=== PATIENT | male | born 1960 | race Caucasian/White ===

== ENCOUNTER 2018-12-29 18:04 | Observation (INO) ==
[2018-12-29] MEDS ORDERED: GLUCAGON IV ONE ×2 (18:14→19:39)
[2018-12-29] MEDS ORDERED: NS 1,000 ML IV ONE (18:14)
[2018-12-29] MEDS ORDERED: BENADRYL IV ONE (18:15)
[2018-12-29] MEDS ORDERED: NITROGLYCERIN TOP ONE (18:15)
[2018-12-29] MEDS ORDERED: REGLAN IV ONE (18:15)
[2018-12-29] MEDS ORDERED: STERILE WATER INJ. ONE (18:29)
[2018-12-29] MEDS ORDERED: SODIUM CHLORIDE 0.9% INJ ONE (18:30)
[2018-12-29] MEDS ORDERED: PROTONIX IV ONE (18:30)
--- NOTE | 2018-12-29 18:33 | PROVIDER DOCUMENTATION ---
This chart was entered by Polly Jones Scribe, acting as scribe for Jay Walden MD. HPI-General Adult - General Chief Complaint: Foreign Body Stated Complaint: FOREIGN OBJECT IN ESOPHAGUS Time Seen by Provider: 12/29/18 18:10 Source: patient Allergies/Adverse Reactions: Patient Allergies Allergy/AdvReac Type Severity Reaction Status Date / Time No Known Allergies Allergy Verified 09/08/17 12:32 Home Medications: Home Medication List Medication Instructions Recorded Confirmed Last Taken Type Ezetimibe 10 mg PO DAILY 04/01/16 09/12/17 09/11/17 07:00 History Levothyroxine [Synthroid] 75 microgm PO DAILY 04/01/16 09/12/17 09/11/17 07:00 History Losartan Potassium 50 mg PO DAILY 04/01/16 09/12/17 09/03/17 07:00 History Meloxicam 15 mg PO DAILY 04/01/16 09/12/17 09/03/17 07:00 History Metoprolol Tartrate 50 mg PO BID 04/01/16 09/12/17 09/12/17 07:00 History Azelastine HCl 2 spr INH BID 09/08/17 09/12/17 09/11/17 07:00 History Montelukast Sodium [Singulair] 10 mg PO DAILY 09/12/17 09/12/17 09/11/17 07:00 History Acetaminophen [Tylenol] 1,000 mg PO Q6H tablet 09/13/17 Unknown Rx Aspirin 325 mg PO DAILY tablet 09/13/17 Unknown Rx Docusate Sodium [Colace] 100 mg PO BID capsule 09/13/17 Unknown Rx Famotidine [Pepcid] 20 mg PO DAILY tablet 09/13/17 Unknown Rx Oxycodone I.r. [Oxy Ir] 5 - 10 mg PO Q3H PRN PRN #60 tab 09/13/17 Unknown Rx Pregabalin [Lyrica] 75 mg PO BID #60 cap 09/13/17 Unknown Rx Tramadol [Ultram] 100 mg PO Q6H #120 tab 09/13/17 Unknown Rx - History of Present Illness -Gen Adult Nature of Presenting Problems: Pt is a 58 yom who presents to the ED with a CC of swallowing a foreign body. Pt states that he swallowed a chicken bone last night. Pt reports vomiting. Pt states that he cannot eat or drink anything. Pt is unable to swallow his sputum since this morning. Pt has frequent hiccups. Pt reports visiting urgent care earlier today. Pt denies trouble breathing and SOB. Pt denies any other complaints. Location of Pain/Injury: reports: chest (subxiphoid area, mainly when he hiccups) Pain Radiation: reports: no radiation Quality of Pain: reports: sharp Severity: reports: mild Onset/Duration: reports: last night Timing: reports: still present Context/Activities at Onset: reports: eating (foreign body(chicken bone)) Modifying Factors: improves with: nothing Associated Symptoms: reports: vomiting Similar Symptoms Previously?: No Recently seen or treated by another doctor?: Yes Review of Systems - Adult - REVIEW OF SYSTEMS - ADULT Constitutional: reports: see HPI Eyes: reports: no symptoms reported Ears, Nose, Mouth & Throat: reports: see HPI, other (trouble swallowing due to foreign body) Cardiovascular: reports: no symptoms reported Respiratory: reports: no symptoms reported Gastrointestinal: reports: see HPI, difficulty swallowing, vomiting Genitourinary: reports: no symptoms reported Musculoskeletal: reports: no symptoms reported Integumentary: reports: no symptoms reported Neurological: reports: no symptoms reported Psychiatric: reports: no symptoms reported Endocrine: reports: no symptoms reported Hematologic/Lymphatic: reports: no symptoms reported Allergic/Immunologic: reports: no symptoms reported All Other Systems: Reviewed and Negative Past History - Adult - PAST MEDICAL HISTORY-ADULT Review of Records: reports: Old Records Reviewed, Nursing Assessment Review, Medications Reviewed, Social history reviewed & non-contributory. Major Childhood Illnesses: reports: denies history Cardiovascular: reports: HTN Respiratory: reports: denies history Gastrointestinal: reports: denies history Obstetrical/Gynecological: reports: denies history Genitourinary: reports: denies history Musculoskeletal: reports: denies history Neurological: reports: denies history Endocrine/Immune: reports: thyroid disorder (hypothyroid/MED) Other Conditions: reports: denies history - IMMUNIZATION STATUS Childhood Immunizations: See Nurse Assessment Flu Vaccine: See Nurse Assessment - FAMILY HISTORY Family History: reviewed, not pertinent - SOCIAL HISTORY Smoking: quit greater than 1 year, less than 1 pack/day Substance Use: denies Alcohol Use Frequency: rarely Living Situation: family Physical Exam-General - PHYSICAL EXAM-ADULT Initial Vital Signs Reviewed: Yes (VSSAF) - CONSTITUTIONAL General Appearance: alert (frequent hiccups) - EYES Eyes: PERRL/EOMI, pink conjunctivae - HEAD, EARS, NOSE, MOUTH & THROAT HENMT: normocephalic/atraumatic. negative: moist mucous membranes - NECK Neck: normal inspection - RESPIRATORY Respiratory: lungs clear, normal breath sounds, no pleuratic chest pain, no respiratory distress, no accessory muscle use. negative: crackles, wheezing - CARDIOVASCULAR Cardiovascular: normal peripheral pulses, regular rate, rhythm. negative: bradycardia, tachycardia - GASTROINTESTINAL (ABDOMEN) Abdominal Exam: non tender, soft, other (frequent hiccups) - MUSCULOSKELETAL Back Exam: normal inspection Extremity: normal inspection - SKIN Integumentary: normal color, normal turgor, warm/dry. negative: ecchymosis, erythema - NEUROLOGIC Neurologic: grossly normal - PSYCHIATRIC Psych/Mental Status: normal mood/affect, normal thought content, normal thought process, oriented x 3 Progress - PLAN OF CARE/RESULTS Progress/Plan/Lab Results: Vital Signs - 8 hr 12/29/18 18:06 Temperature 98.2 F Pulse Rate 97 H Respiratory Rate 19 Blood Pressure 150/92 O2 Sat by Pulse Oximetry 95 - XRAY 1 XRAY Study: Chest Impression: Normal, See EMR Report ( EXAM: CHEST-PORTABLE HISTORY: esophageal foreign body TECHNIQUE: Single view COMPARISON: 10/09/2014 FINDINGS: The lungs are well expanded. The heart is not enlarged. The vessels are not distended. There are no infiltrates. No effusion identified. No foreign body identified. IMPRESSION: Negative exam. Electronically signed by Enrique Cochran 12/29/2018 6:30 PM 12/29/18 1830 Interpreting Physician: Enrique Cochran MD Dictated Date/Time: 12/29/18 1829 cc: Jay Walden MD; Soy Olivo) - CONSULTS/PCP/HOSPITALIST Notification #1 *Consult/PCP/Hospitalist*: [facility] Time Discussed: 18:32 Reason/Comments: CAll back to see if any luck with meds - CHANGE OF SHIFT REPORT (ED Provider) 1 Report Given and Care Transferred to:: [facility] Time of Transfer: 19:00 Items Pending: Other (re-evaluation after meds, then either call [facility] back or d/c home) Departure - Departure DIAGNOSIS: Impacted esophageal foreign body Qualifiers: Encounter type: initial encounter Qualified Code(s): T18.108A - Unspecified foreign body in esophagus causing other injury, initial encounter Certified Medical Emergency: Emergent Condition: Stable Referrals and Follow-Ups: Soy Schuster [Primary Care Provider] - - Critical Care Note This patient required my direct & personal management of CC.: No Attestation - Physician/ ANG Attestation Patient care was provided by Advanced Practice Provider:: No The physician spent face to face time with patient:: Yes Advanced Practice Provider documentation review:: Supervising physician onsite and consulted in the evaluation and care of this patient. The physician did have a face to face encounter with the patient. This chart was documented by the indicated scribe, (Polly Jones Scribe) and accurately reflects the services I performed and decisions made by me, Jay Walden MD, as attested by the provider's signature.
[2018-12-29] MEDS ORDERED: STERILE WATER INJ. INJ ONE (18:36)
[2018-12-29 19:43] LABS: BASO# 0.05 X1000 (0.0-0.2); BASO% 0.5 % (0.0-0.8); EOS# 0.16 X1000 (0.0-0.7); EOS% 1.6 % (0.0-10.0); HEMATOCRIT 45.2 % (42.0-52.0); HEMOGLOBIN 15.3 g/dL (14.0-18.0); LYMPH# 1.52 X1000 (1.2-3.4); LYMPH% 15.1 % (20.5-51.1); MCH 30.1 PG (27-31); MCHC 33.8 g/dL (33-37); MCV 88.8 FL (81-99); MONO# 0.69 X1000 (0.11-0.59); MONO% 6.9 % (1.7-9.3); MPV 10.3 FL (7.4-10.4); NEUT# 7.63 X1000 (1.4-6.5); NEUT% 75.9 % (42.2-75.2); PLT 291 X1000 (130-400); RBC 5.09 XMIL (4.7-6.1); RDW 14.8 % (11.5-14.5); WBC 10.05 X1000 (4.8-10.8)
[2018-12-29 20:03] LABS: AGAP 14; ALB/GLOB RATIO 1.8; ALBUMIN 4.8 g/dL (3.5-5.0); ALKALINE PHOSPHATASE 57 U/L (32-122); BUN 20 mg/dL (8-22); CALCIUM 9.3 mg/dL (8.8-10.2); CHLORIDE 107 mmol/L (98-107); COSMO 289; CREATININE 0.9 mg/dL (0.7-1.2); ESTIMATED GFR > 60; GLUCOSE 99 mg/dL (70-104); GOT 28 U/L (10-34); GPT 25 U/L (10-44); POTASSIUM 3.4 mmol/L (3.5-5.1); SODIUM 144 mmol/L (136-145); TCO2 23 mmol/L (25-35); TOTAL BILIRUBIN 0.74 mg/dL (0.20-1.00); TOTAL PROTEIN 7.5 g/dL (6.3-8.3)
[2018-12-29] MEDS ORDERED: XYLOCAINE-MPF 2% ONE (20:17)
[2018-12-29] MEDS ORDERED: DIPRIVAN 1% ONE (20:18)
[2018-12-29] MEDS ORDERED: QUELICIN (DOSE) ONE (20:31)
--- NOTE | 2018-12-29 21:04 | ENDOSCOPY OPERATIVE NOTE ---
[facility] ENDOSCOPY OPERATIVE NOTE , PATIENT: Marko Silverman ADMISSION DATE: MR#: [id number] : 1960 EGD PROCEDURE REPORT PROCEDURE DATE: 12/29/2018 SURGEON: Nino Horton MD STATUS: inpatient COST ANALYST: Bing Ray and James Pimentel PREOPERATIVE DIAGNOSIS: The patient is a 58 yr old male here for an EGD due to Food impaction after eating chicken last night, GERD, Arthritis takes Mobic. PROCEDURE PERFORMED: EGD w/ fb removal MEDICATIONS: Per Anesthesia TOPICAL ANESTHETIC: CONSENT: The patient understands the risks and benefits of the procedure and understands that these r isks include, but are not limited to: sedation, allergic reaction, infection, perforation and/or bleeding. Alternative means of evaluation and treatment include, among others: physical exam, x-rays, and/or surgical intervention. The patient elects to proceed with this endoscopic procedure. HISORY AND PHYSICAL: 12/29/2018 DESCRIPTION OF PROCEDURE: During intra-op preparation period all mechanical and medical equipment was checked for proper function. Hand hygiene and appropriate measures for infection prevention was taken. After the risks, benefits and alternatives of the procedure were thoroughly explained, Informed consent was verified, confirmed and timeout was successfully executed by the treatment team. The patient was anesthetized with topical anesthesia and the [id number] ([id number]) endoscope was introduced through the mouth and advanced to the second portion of the duoden um. Retroflexion was performed in the stomach and revealed no abnormalities. The gastroscope was then slowly withdraw n and removed. ESOPHAGUS: Food bolus noted in the distal esophagus; Gently pushed into the stomach under direct visu alization successfully; Severe Grade IV reflux esophagitis was noted at the distal esopahgus and GEJ likely fro m chronic acid reflux and food impaction. Some oozing was noted which stopped spontaneously. STOMACH: Mild gastritis in the antrum. Food bolus noted in the stomach. DUODENUM: The duodenal mucosa showed no abnormalities in the duodenal bulb, 1st part duodenum, and 2n d part duodenum. SPECIMENS REMOVED: Specimen Removed ADVERSE EVENTS: There were no complications. POSTOPERATIVE DIAGNOSIS: 1. Food bolus noted in the distal esophagus; Gently pushed into the sto mach under direct visualization successfully; Severe Grade IV reflux esophagitis was noted at the distal esopahgus and GEJ likely from chronic acid reflux and food impaction. Some oozing was noted which stopped spontaneously 2. Mild gastritis in the antrum. Food bolus noted in the stomach 3. The duodenal mucosa showed no abnormalities in the duodenal bulb, 1st part duodenum, and 2nd part duodenum RECOMMENDATIONS: Start Omeprazole 40 mg twice daily for 90 days. RTC in 3 weeks. Start full liq uid diet for 3 days and then advance as tolaerted. Avoid NSAIDS like Mobic for now. Check Chest Xray post procedure. C all with questions. REPEAT EXAM: Return in 4 weeks for EGD. for esophageal dilation Nino Horton MD eSigned: Nino Horton MD 12/29/2018 9:03 PM cc: PATIENT NAME: Marko Silverman MR#: [id number]
--- NOTE | 2018-12-29 21:38 | Diag Imaging Result Doc PS360 ---
EXAM: CHEST-PORTABLE HISTORY: post EGD procedure, food impaction TECHNIQUE: Portable chest COMPARISON: 6:26 PM FINDINGS: Poor inspiratory effort. The heart is enlarged. The vessels are distended. Small left pleural effusion. Atelectasis or infiltrates in the left lower lobe. IMPRESSION: Interval development of pulmonary edema and a small left effusion with left lower lobe atelectasis and/or an infiltrate Electronically signed by Enrique Cochran 12/29/2018 9:35 PM
[2018-12-29 23:40] VITALS: BP 161/80
--- NOTE | 2018-12-30 17:23 | EKG Report ---
Test Performed on : 12/29/2018 6:58:54 PM Test Reason : trouble swallowing Blood Pressure : / mmHG Vent. Rate : 093 BPM Atrial Rate : 093 BPM P-R Int : 166 ms QRS Dur : 108 ms QT Int : 390 ms P-R-T Axes : 016 -40 006 degrees QTc Int : 484 ms Normal sinus rhythm. Left axis deviation Incomplete right bundle branch block Moderate voltage criteria for LVH, may be normal variant Prolonged QT Abnormal ECG When compared with ECG of 07-SEP-2017 07:47, No significant change was found Unconfirmed Result
== END 2018-12-29 23:45 | disposition home or self-care (01) ==
LOC: ED 18:04 → 4N 18:04
PROVIDERS: ADMIT Internal Medicine; ATTEND Internal Medicine